=== PATIENT | female | born 1955 | race African-American/Black ===

== ENCOUNTER 2017-03-16 14:37 | Emergency (ER) | payer MEDICAID, OTHER ==
[~2017-03-16] VITALS: Ht 172.7 cm; Wt 119.0 kg
[2017-03-16 14:46] VITALS: BP 139/74
[2017-03-16] MEDS ORDERED: AMLO2.5T2 PO (14:51)
[2017-03-16] MEDS ORDERED: ASPI-1159 PO (14:51)
== END 2017-03-16 17:08 | disposition left against medical advice (07) ==
LOC: ER 14:37
DX: M79.602 Pain in left arm (principal); Z53.21 Procedure and treatment not carried out due to patient leaving prior to being seen by health care provider

== ENCOUNTER 2018-05-18 11:00 | Emergency (ER) | payer MEDICAID ==
[~2018-05-18] VITALS: Ht 172.7 cm; Wt 127.0 kg
[~2018-05-18 11:00] MED LIST: AMLO2.5T2 PO; ASPI-1159 PO
[2018-05-18] MEDS ORDERED: KETOROLAC 60MG/2ML VIAL IM ONE (13:45)
[2018-05-18] MEDS ORDERED: HYDROCODONE/ACETAMINOPHEN 5/325MG TABLET PO ONE (13:45)
[2018-05-18 13:53] VITALS: BP 116/93
== END 2018-05-18 16:28 | disposition home or self-care (01) ==
LOC: ER 11:00
DX: M17.11 Unilateral primary osteoarthritis, right knee (principal); M25.461 Effusion, right knee; F41.9 Anxiety disorder, unspecified; I10 Essential (primary) hypertension; F17.200 Nicotine dependence, unspecified, uncomplicated; F12.10 Cannabis abuse, uncomplicated; Z98.890 Other specified postprocedural states; Z79.82 Long term (current) use of aspirin
CPT/HCPCS: 73700; 96372; 99284; J1885

== ENCOUNTER 2018-06-26 21:16 | Emergency (ER) | payer MEDICAID ==
[~2018-06-26] VITALS: Ht 172.7 cm; Wt 129.8 kg
[2018-06-27] MEDS ORDERED: KETOROLAC 60MG/2ML VIAL IM ONE (04:00)
[2018-06-27 06:02] VITALS: BP 133/80
== END 2018-06-27 06:02 | disposition home or self-care (01) ==
LOC: ER 21:16
DX: G89.29 Other chronic pain (principal); M25.561 Pain in right knee; F41.9 Anxiety disorder, unspecified; J45.909 Unspecified asthma, uncomplicated; I10 Essential (primary) hypertension; F12.10 Cannabis abuse, uncomplicated; F17.200 Nicotine dependence, unspecified, uncomplicated; Z79.899 Other long term (current) drug therapy
CPT/HCPCS: 73564; 96372; 99283; J1885; L1830; Z7610

== ENCOUNTER 2018-10-16 20:28 | Inpatient (IN) | payer MEDICAID ==
[~2018-10-16] VITALS: Ht 172.7 cm; Wt 134.7 kg
[~2018-10-16 20:28] MED LIST changes: -ASPI-1159 PO; +ASPI-1393 PO
[2018-10-16] MEDS ORDERED: NITROGLYCERIN 0.4MG TABLET SL SL PRN ×2 (21:15→23:00)
[2018-10-16] MEDS ORDERED: MAGNESIUM/ALUMINUM HYDROXIDE/SIMETHICONE 30ML UDC PO ONE (21:15)
[2018-10-16] MEDS ORDERED: VISCOUS LIDOCAINE 2% 15 ML UDC PO ONE (21:15)
[2018-10-16 21:27] LABS: BASOPHILS % 0.9 % (0.0-2.0); EOSINOPHILS % 0.7 % (0.0-5.0); HEMATOCRIT. 38.5 % (36.0-48.0); HEMOGLOBIN. 13.1 g/dL (12.0-16.0); LYMPHOCYTES % 16.3 % (20.0-50.0); MEAN CORPUSCULAR VOLUME 91.4 fL (81.0-99.0); MEAN PLATELET VOLUME 10.7 fl (7.4-10.4); MONOCYTES % 5.3 % (2.0-8.0); NEUTROPHILS % 76.8 % (40.0-76.0); PLATELET 209 x1000/uL (130-400); RED BLOOD CELL COUNT 4.21 mill/uL (4.2-5.4); RED CELL DISTRIBUTION WIDTH 14.7 % (11.6-14.6)
[2018-10-16 21:29] LABS: CHLORIDE 108 mEq/L (98-107)
[2018-10-16 21:33] LABS: D-DIMER 0.39 mg/L FEU (<0.50)
[2018-10-16] MEDS ORDERED: IPRATROPIUM/ALBUTEROL 0.5-3(2.5)MG/3ML NEB INH PRN (23:00)
[2018-10-16] MEDS ORDERED: ZOLPIDEM TARTRATE 5MG TABLET PO PRN (23:00)
[2018-10-16] MEDS ORDERED: ONDANSETRON HCL 4MG/2ML INJ IV PRN (23:00)
[2018-10-16] MEDS ORDERED: KETOROLAC 15MG/ML VIAL IV PRN (23:00)
[2018-10-16] MEDS ORDERED: MAGNESIUM/ALUMINUM HYDROXIDE/SIMETHICONE 30ML UDC PO PRN (23:00)
[2018-10-16] MEDS ORDERED: ACETAMINOPHEN 325MG TABLET PO PRN (23:00)
[2018-10-16] MEDS ORDERED: CLONIDINE 0.1MG TABLET PO PRN (23:00)
[2018-10-16] MEDS ORDERED: LORAZEPAM 0.5MG TABLET PO PRN (23:00)
[2018-10-16] MEDS ORDERED: DOCUSATE SODIUM 100MG CAPSULE PO PRN (23:00)
[2018-10-16] MEDS ORDERED: GUAIFENESIN 200MG/10ML SUGAR FREE UDC PO PRN (23:00)
[2018-10-16] MEDS ORDERED: IOHEXOL-350 100 ML BOTTLE ONE (23:26)
[2018-10-17 01:13] VITALS: BP 139/70
[2018-10-17 01:15] VITALS: BP 139/70
[2018-10-17] MEDS ORDERED: AMLO10TA4 MT (01:18)
[2018-10-17] MEDS ORDERED: HYDR-4001 PO (01:18)
[2018-10-17 06:52] LABS: BASOPHILS % 0.7 % (0.0-2.0); EOSINOPHILS % 1.9 % (0.0-5.0); HEMATOCRIT. 35.4 % (36.0-48.0); HEMOGLOBIN. 11.9 g/dL (12.0-16.0); LYMPHOCYTES % 26.3 % (20.0-50.0); MEAN CORPUSCULAR HEMOGLOBIN 31.1 pg (28.0-32.0); MEAN CORPUSCULAR VOLUME 92.2 fL (81.0-99.0); MEAN PLATELET VOLUME 10.4 fl (7.4-10.4); NEUTROPHILS % 63.1 % (40.0-76.0); PLATELET 184 x1000/uL (130-400); RED BLOOD CELL COUNT 3.84 mill/uL (4.2-5.4); RED CELL DISTRIBUTION WIDTH 14.7 % (11.6-14.6)
[2018-10-17 07:18] LABS: CHLORIDE 107 mEq/L (98-107)
[2018-10-17 07:29] LABS: CREATINE KINASE 87 IU/L (26-192)
[2018-10-17 07:36] LABS: CREATINE KINASE MB FRACTION < 1.0 ng/mL (0.5-3.6)
[2018-10-17] MEDS ORDERED: SUCRALFATE 1 G/10 ML UDC PO SCH (07:40)
[2018-10-17 08:00] VITALS: BP 117/78
[2018-10-17] MEDS ORDERED: FAMOTIDINE 20MG TABLET PO SCH (09:00)
[2018-10-17] MEDS ORDERED: ASPIRIN 325MG EC TABLET PO SCH (09:00)
[2018-10-17] MEDS ORDERED: ENOXAPARIN 30MG/0.3ML SYR SUBCUT SCH (09:00)
[2018-10-17] MEDS ORDERED: METOPROLOL TARTRATE 25MG TABLET PO SCH (09:00)
[2018-10-17 11:01] VITALS: BP 117/60
[2018-10-17 12:00] VITALS: BP 122/73
== END 2018-10-17 12:35 | disposition home or self-care (01) | DRG 243 ==
LOC: ER 20:28 → 7WST 22:35 → EDBEDREQ 22:44 → EDBEDREQTM 22:44 → ENRESERV 10-17 00:10
PROVIDERS: ADMIT Internal Medicine; ATTEND Internal Medicine
DX: K21.9 Gastro-esophageal reflux disease without esophagitis (principal); Z68.42 Body mass index [BMI] 45.0-49.9, adult; I10 Essential (primary) hypertension; E66.9 Obesity, unspecified; F17.210 Nicotine dependence, cigarettes, uncomplicated; G89.29 Other chronic pain; M25.561 Pain in right knee; M25.562 Pain in left knee; M10.9 Gout, unspecified; F41.9 Anxiety disorder, unspecified; Z98.891 History of uterine scar from previous surgery; Z79.899 Other long term (current) drug therapy; Z71.3 Dietary counseling and surveillance; Z79.82 Long term (current) use of aspirin
CPT/HCPCS: 36415; 71045; 71275; 76705; 80048; 80061; 82550; 82553; 83036; 83880; 84484; 85379; 93005; 93970; 99285; J1650; J1885; Q9967

== ENCOUNTER 2019-08-24 14:46 | Emergency (ER) | payer MEDICAID ==
[~2019-08-24] VITALS: Ht 172.7 cm; Wt 134.0 kg
[~2019-08-24 14:46] MED LIST changes: +AMLO10TA4 MT; -AMLO2.5T2 PO; -ASPI-1393 PO; +ASPI-1497 PO; +HYDR-4001 PO
[2019-08-24] MEDS ORDERED: LIDOCAINE 1%/EPI 1:100,000 10 ML VIAL IJ ONE (15:45)
[2019-08-24] MEDS ORDERED: BACITRACIN ZINC OINT UDPKT TOP ONE (15:45)
[2019-08-24] MEDS ORDERED: LIDOCAINE HCL/EPINEPHRINE 1%-EPI 1:100,000 20 ML VIAL INFIL NR (16:00)
[2019-08-24 18:56] VITALS: BP 146/73
== END 2019-08-24 20:02 | disposition home or self-care (01) ==
LOC: ER 14:46
DX: L02.212 Cutaneous abscess of back [any part, except buttock and flank] (principal); I10 Essential (primary) hypertension
CPT/HCPCS: 99283; J3490

== ENCOUNTER 2019-08-26 09:30 | Emergency (ER) | payer MEDICAID ==
[~2019-08-26] VITALS: Ht 172.7 cm; Wt 136.0 kg
[2019-08-26 09:44] VITALS: BP 144/99
== END 2019-08-26 10:53 | disposition home or self-care (01) ==
LOC: ER 09:30
DX: L02.212 Cutaneous abscess of back [any part, except buttock and flank] (principal); I10 Essential (primary) hypertension; F12.10 Cannabis abuse, uncomplicated; Z79.899 Other long term (current) drug therapy; Z98.890 Other specified postprocedural states; Z48.00 Encounter for change or removal of nonsurgical wound dressing
CPT/HCPCS: 10060; 99282; 99283

== ENCOUNTER 2019-08-30 10:31 | Emergency (ER) | payer MEDICAID ==
[~2019-08-30] VITALS: Ht 167.6 cm; Wt 100.0 kg
[2019-08-30 12:11] VITALS: BP 139/95
== END 2019-08-30 12:13 | disposition home or self-care (01) ==
LOC: ER 10:31
DX: L02.212 Cutaneous abscess of back [any part, except buttock and flank] (principal); F12.10 Cannabis abuse, uncomplicated; I10 Essential (primary) hypertension; Z48.00 Encounter for change or removal of nonsurgical wound dressing; Z98.890 Other specified postprocedural states; Z79.899 Other long term (current) drug therapy; Z79.82 Long term (current) use of aspirin
CPT/HCPCS: 99281; 99282